=== PATIENT | male | born 1990 | race Caucasian/White ===

== ENCOUNTER 2017-09-12 17:12 | Emergency (ER) | payer OTHER ==
[~2017-09-12] VITALS: Ht 165.1 cm; Wt 63.5 kg
== END 2017-09-12 23:19 | disposition home or self-care (01) ==
LOC: ER 17:12
DX: K52.9 Noninfective gastroenteritis and colitis, unspecified (principal); J11.1 Influenza due to unidentified influenza virus with other respiratory manifestations

== ENCOUNTER 2019-02-16 09:17 | Emergency (ER) | payer OTHER ==
[~2019-02-16] VITALS: Ht 165.1 cm; Wt 59.0 kg
== END 2019-02-16 15:26 | disposition home or self-care (01) ==
LOC: ER 09:17
DX: J20.8 Acute bronchitis due to other specified organisms (principal); R05 Cough; R00.0 Tachycardia, unspecified; R09.81 Nasal congestion

== ENCOUNTER 2024-04-14 23:46 | Emergency (ER) | payer OTHER ==
[~2024-04-14] VITALS: Ht 165.1 cm; Wt 59.0 kg
[2024-04-15] MEDS ORDERED: RINGERS SOLUTION,LACTATED 1,000 ML IV STA (00:53)
[2024-04-15] MEDS ORDERED: HYOSCYAMINE SULFATE 0.125 MG TAB.SUBL SL STA (00:53)
[2024-04-15] MEDS ORDERED: MEPERIDINE HCL/PF 50 MG/ML VIAL IM STA (00:54)
[2024-04-15] MEDS ORDERED: PROMETHAZINE HCL 50 MG/ML AMPUL IV STA (00:55)
[2024-04-15] MEDS ORDERED: PIPERACILLIN/TAZOBACTAM SODIUM 3.375 GM VIAL IV STA (00:59)
[2024-04-15 01:59] LABS: PH,URINE 6.5 (5.0-8.0); URINE APPEARANCE Clear; URINE BILIRRUBIN Negative (NEGATIVE); URINE BLOOD Negative; URINE COLOR Yellow; URINE GLUCOSE Negative (NEGATIVE); URINE KETONE Negative (NEGATIVE); URINE LEUKOCYTE Negative; URINE NITRATE Negative; URINE PROTEIN Negative (NEGATIVE)
[2024-04-15 02:01] LABS: HEMOGLOBIN 12.8 g/dL (13-16.00); MEAN CELL VOLUME 96.2 fL (80.0-100.00); MEAN CORPUSCULAR HEMOGLOBIN 34.2 pg (27.00-32.0); MEAN CORPUSCULAR HGB CONC 35.6 g/dl (32.0-36.0); PLATELET COUNT 179 K/uL (150-450); RED BLOOD COUNT 3.74 M/uL (4.00-6.00); RED CELL DISTRIBUTION WIDTH 13.1 % (11.5-14.5)
[2024-04-15 02:03] LABS: URINE EPITHELIAL CELLS 1.5 uL (0.0-38.8); URINE RBC 4.2 uL (0.0-20.8); URINE WBC 2.1 uL (0.0-23.2)
[2024-04-15 02:19] LABS: INR 1.06; PARTIAL THROMBOPLASTIN TIME 31.7 SECONDS (22.0-34.0); PROTHROMBIN TIME 11.5 SECONDS (9.0-11.5)
[2024-04-15 02:23] LABS: ALBUMIN 3.5 gm/dL (3.4-5.0); BILIRUBIN TOTAL 0.42 mg/dL (0.3-1.2); CALCIUM 8.9 mg/dL (8.5-10.1); CREATININE SERUM 0.71 mg/dL (0.70-1.30); GLOBULINA 4.1 G/DL (2.4-3.5); POTASSIUM 3.11 mEq/L (3.5-5.1); TOTAL PROTEIN 7.6 gm/dL (6.4-8.2)
[2024-04-15 02:38] LABS: URINE BACTERIA 3.7 uL (0.0-1933)
[2024-04-15] MEDS ORDERED: LOPERAMIDE HCL 2 MG CAPSULE PO ONE (10:15)
== END 2024-04-15 11:27 | disposition home or self-care (01) ==
LOC: ER 23:48
DX: K40.90 Unilateral inguinal hernia, without obstruction or gangrene, not specified as recurrent (principal); K52.9 Noninfective gastroenteritis and colitis, unspecified; Z20.822 Contact with and (suspected) exposure to COVID-19; N44.2 Benign cyst of testis